=== PATIENT | female | born 1980 | race Caucasian/White ===

== ENCOUNTER 2023-08-18 17:10 | Emergency (ER) | payer BC ==
[2023-08-18 17:26] VITALS: BP 145/84; PULSE 65; RESP 18; TEMP 98.2
--- NOTE | 2023-08-18 17:26 | ED ---
General Adult HPI - General Chief complaint: Extremity Injury, Lower Stated complaint: Pain in L foot Time Seen by Provider: 08/18/23 17:25 Source: patient, RN notes reviewed Mode of arrival: ambulatory Limitations: no limitations - History of Present Illness Initial comments: Patient is a 43-year-old female presented to ER with chief complaint of left foot pain. Patient states yesterday she noted her left foot was painful. She states today pain has increased into her ankle and up into her calf. Does have a history of DVTs. Not currently on blood thinner. She reports she recently traveled home from [place] about 8-hour car ride. Denies any chest pain, shortness of breath, fevers, chills. Denies any traumas or injury. - Related Data Allergies Allergy/AdvReac Type Severity Reaction Status Date / Time No Known Allergies Allergy Verified 08/18/23 17:21 Review of Systems ROS Statement: Those systems with pertinent positive or pertinent negative responses have been documented in the HPI. ROS Other: All systems not noted in ROS Statement are negative. Past Medical History Past Medical History: No Reported History History of Any Multi-Drug Resistant Organisms: None Reported Past Surgical History: Section, Cholecystectomy, Tonsillectomy Additional Past Surgical History / Comment(s): splenectomy Past Psychological History: Anxiety Smoking Status: Never smoker Past Alcohol Use History: Occasional Past Drug Use History: None Reported General Exam - General Exam Comments Initial Comments: Visual Physical Exam Vital signs reviewed General: Well-appearing, nontoxic, no acute distress. Head: Normocephalic, atraumatic Eyes: PERRLA, EOMI ENT: Airway patent Chest: Nonlabored breathing Skin: No visual rash, normal skin tone Neuro: Alert and oriented 3 Musculoskeletal: No gross abnormalities Limitations: no limitations General appearance: alert, in no apparent distress Respiratory exam: Present: normal lung sounds bilaterally. Absent: respiratory distress, wheezes, rales, rhonchi, stridor Cardiovascular Exam: Present: regular rate, normal rhythm, normal heart sounds. Absent: systolic murmur, diastolic murmur, rubs, gallop, clicks Extremities exam: Present: normal inspection, full ROM, normal capillary refill, other (Positive Homans' sign on left. 2+ dorsalis pedis pulse. Sensation intact. ). Absent: tenderness, pedal edema, joint swelling, calf tenderness Neurological exam: Present: alert, oriented X3, CN II-XII intact Psychiatric exam: Present: normal affect, normal mood Skin exam: Present: warm, dry, intact, normal color. Absent: rash Course Vital Signs 08/18/23 17:16 Temperature 98.2 F Pulse Rate 65 Respiratory 18 Rate Blood Pressure 145/84 O2 Sat by Pulse 98 Oximetry Medical Decision Making - Medical Decision Making I performed the quick note portion of this chart. Electronically signed by Mitch Mcdonald PA-C Was pt. sent in by a medical professional or institution (, [facility], DEPARTMENT MANAGER, urgent care, hospital, or intermediate...) When possible be specific @ -No Did you speak to anyone other than the patient for history (EMS, parent, family, police, friend...)? What history was obtained from this source @ -No Did you review nursing and triage notes (agree or disagree)? Why? @ -I reviewed and agree with nursing and triage notes Were old charts reviewed (outside hosp., previous admission, EMS record, old EKG, old radiological studies, urgent care reports/EKG's, intermediate records)? Report findings @ -No old charts were reviewed Differential Diagnosis (chest pain, altered mental status, abdominal pain women, abdominal pain men, vaginal bleeding, weakness, fever, dyspnea, syncope, headache, dizziness, GI bleed, back pain, seizure, CVA, palpatations, mental health, musculoskeletal)? @ -Differential Musculoskeletal Muscular strain, contusion, ligament sprain, fracture, arthritis, septic arthritis, bursitis, cellulitis, muscle spasm, nerve compression, DVT, arterial occlusion, herpes zoster, electrolyte abnormality, tumor.... This is not meant to be in all inclusive list EKG interpreted by me (3pts min.). @ -None X-rays interpreted by me (1pt min.). @ -None done CT interpreted by me (1pt min.). @ -None done U/S interpreted by me (1pt. min.). @ -Ultrasound venous Doppler of left lower extremity negative for acute DVTs. What testing was considered but not performed or refused? (CT, X-rays, U/S, labs)? Why? @ -None What meds were considered but not given or refused? Why? @ -None Did you discuss the management of the patient with other professionals (professionals i.e. , PA, DEPARTMENT MANAGER, lab, RT, psych nurse, healthcare social worker, spike maker, teacher, peace officer, case picker)? Give summary @ -No Was smoking cessation discussed for >3mins.? @ -No Was critical care preformed (if so, how long)? @ -No Were there social determinants of health that impacted care today? How? (Homelessness, low income, unemployed, alcoholism, drug addiction, transportation, low edu. Level, literacy, decrease access to med. care, prison, rehab)? @ -No Was there de-escalation of care discussed even if they declined (Discuss DNR or withdrawal of care, Hospice)? DNR status @ -No What co-morbidities impacted this encounter? (DM, HTN, Smoking, COPD, CAD, Cancer, CVA, ARF, Chemo, Hep., AIDS, mental health diagnosis, sleep apnea, morbid obesity)? @ -History of DVT not currently on thinner Was patient admitted / discharged? Hospital course, mention meds given and rou te, prescriptions, significant lab abnormalities, going to OR and other pertinent info. @ -Discharged. Patient is a 43 year old female presenting to the ER with a chief compliant of left ankle pain. History and physical exam completed. Vitals stable. Patient in no signs of acute distress. Positive Homans sign on left. Bilateral lower extremities neurovascularly intact. Due to concern of DVT as patient recently traveled 8 hours in a car and history of DVTs not on thinners ultrasound was completed. Ultrasound venous Doppler of left lower extremity negative for acute DVTs. Results discussed with patient, all questions answered. Advised her to follow-up with PCP in the next 1 to 2 days. Return parameters discussed. Patient discharged stable condition follow-up PCP. Patient expressed understanding and agreement with care plan. Undiagnosed new problem with uncertain prognosis? @ -No Drug Therapy requiring intensive monitoring for toxicity (Heparin, Nitro, Insulin, Cardizem)? @ -No Were any procedures done? @ -No Diagnosis/symptom? @ -Ankle pain Acute, or Chronic, or Acute on Chronic? @ -Acute Uncomplicated (without systemic symptoms) or Complicated (systemic symptoms)? @ -Uncomplicated Side effects of treatment? @ -No Exacerbation, Progression, or Severe Exacerbation? @ -No Poses a threat to life or bodily function? How? (Chest pain, USA, [place], pneumonia, PE, COPD, DKA, ARF, appy, cholecystitis, CVA, Diverticulitis, Homicidal, Suicidal, threat to staff... and all critical care pts) @ -No - Radiology Data Radiology results: report reviewed, image reviewed Disposition Clinical Impression: Left ankle pain Disposition: HOME SELF-CARE Condition: Stable Additional Instructions: Please follow-up with PCP in the next 1 to 2 days. Return to the ER for any new or worsening symptoms. You may alternate using [id number] Tylenol and Motrin for pain control. Is patient prescribed a controlled substance at d/c from ED?: No Referrals: Noe Wood DO [Primary Care Provider] - 1-2 days Time of Disposition: 18:56
--- NOTE | 2023-08-18 18:20 | US ---
EXAMINATION TYPE: US venous doppler duplex LE LT DATE OF EXAM: 08/18/2023 6:07 PM COMPARISON: NONE CLINICAL INDICATION: Female, 43 years old with history of pain/hx dvt/no thinners; Pain in left ankle /foot that shoots up leg x 1 day. Hx of DVT in 2007. Not on blood thinners currently SIDE PERFORMED: Left TECHNIQUE: The lower extremity deep venous system is examined utilizing real time linear array sonog garrett with graded compression, doppler sonography and color-flow sonography. VESSELS IMAGED: Common Femoral Vein Deep Femoral Vein Greater Saphenous Vein * Femoral Vein Popliteal Vein Small Saphenous Vein * Proximal Calf Veins (* superficial vessels) Left Leg: No evidence for DVT IMPRESSION: No evidence for DVT within the left lower extremity imaged from the groin to the upper calf.
== END 2023-08-18 22:35 | disposition home or self-care (01) ==
LOC: EC 17:10
DX: M25.572 Pain in left ankle and joints of left foot (principal); Z86.59 Personal history of other mental and behavioral disorders
CPT/HCPCS: 99283

== ENCOUNTER → 2023-09-16 | Outpatient (CLI) | payer BC ==
--- NOTE | 2023-09-19 15:01 | MM ---
Reason for Exam: Screening (asymptomatic). Patient History: Menarche at age 11. First Full-Term at age 33. Late child-bearing (after 31). Perimenopausal. Hormonal Contraceptives for 11 years from age 18 until age 29. Risk Values: Sulma 5 year model risk: 1.0%. NCI Lifetime model risk: 14.6%. Tissue Density: The breasts are heterogeneously dense, which may obscure small masses. Findings: Analyzed By CAD. The pattern is symmetrical. No suspicious groups of microcalcifications, spiculated or lobular masses, architectural distortion or other secondary signs of malignancy are mammographically apparent. Overall Assessment: Negative, BI-RAD 1 Management: Screening Mammogram of both breasts in 1 year. A negative mammogram report should not preclude additional follow up of suspicious palpable abnormalities. Patient should continue monthly self breast exam. A clinical breast exam by your physician is recommended on an annual basis and results should be correlated with mammographic findings. Electronically signed and approved by: Boris Churchill D.O. Radiologis
== END | disposition home or self-care (01) ==
LOC: RADMAMWWP 11:05
PROVIDERS: ATTEND Family Medicine
DX: Z12.31 Encounter for screening mammogram for malignant neoplasm of breast (principal)
CPT/HCPCS: 77063; 77067

== ENCOUNTER 2023-09-24 20:28 | Emergency (ER) | payer BC ==
--- NOTE | 2023-09-24 20:43 | ED ---
Upper Extremity HPI - General Chief Complaint: Extremity Injury, Upper Stated Complaint: Left Middle Finger Injury Time Seen by Provider: 09/24/23 20:35 Source: patient Mode of arrival: ambulatory Limitations: no limitations - History of Present Illness Initial Comments: 43-year-old female presenting with chief complaint of finger pain. Patient states that her daughter went to go do a handstand when her foot kicked the patient's left middle finger. She is having a pins and needle sensation in this finger. She does have full range of motion but this does induce pain. There is a bit of swelling as well. No obvious deformity. - Related Data Allergies Allergy/AdvReac Type Severity Reaction Status Date / Time No Known Allergies Allergy Verified 09/24/23 20:35 Review of Systems ROS Statement: Those systems with pertinent positive or pertinent negative responses have been documented in the HPI. ROS Other: All systems not noted in ROS Statement are negative. Past Medical History Past Medical History: Deep Vein Thrombosis (DVT) History of Any Multi-Drug Resistant Organisms: None Reported Past Surgical History: Section, Cholecystectomy, Tonsillectomy Additional Past Surgical History / Comment(s): splenectomy Past Psychological History: Anxiety Smoking Status: Never smoker Past Alcohol Use History: Occasional Past Drug Use History: None Reported General Exam Limitations: no limitations General appearance: alert, in no apparent distress Head exam: Present: atraumatic, normocephalic Eye exam: Present: normal appearance, EOMI Neck exam: Present: normal inspection Respiratory exam: Absent: respiratory distress Cardiovascular Exam: Present: regular rate Left Hand Wrist exam: Present: full ROM, tenderness (Tenderness and swelling of the left middle finger) Neurological exam: Present: alert, oriented X3 Psychiatric exam: Present: normal affect, normal mood Skin exam: Present: warm, dry Course Vital Signs 09/24/23 09/24/23 20:33 22:28 Temperature 97.8 F Pulse Rate 71 65 Respiratory 18 18 Rate Blood Pressure 143/86 126/82 O2 Sat by Pulse 98 96 Oximetry Medical Decision Making - Medical Decision Making Was pt. sent in by a medical professional or institution (, PA, ELEMENTARY SUMMER SCHOOL TEACHER, urgent care, hospital, or [facility]...) When possible be specific @ -[No] Did you speak to anyone other than the patient for history (EMS, parent, family, police, friend...)? What history was obtained from this source @ -[No] Did you review nursing and triage notes (agree or disagree)? Why? @ -[I reviewed and agree with nursing and triage notes] Were old charts reviewed (outside hosp., previous admission, EMS record, old EKG, old radiological studies, urgent care reports/EKG's, [facility] records)? Report findings @ -[No old charts were reviewed] Differential Diagnosis (chest pain, altered mental status, abdominal pain women, abdominal pain men, vaginal bleeding, weakness, fever, dyspnea, syncope, headache, dizziness, GI bleed, back pain, seizure, CVA, palpatations, mental health, musculoskeletal)? @ -Differential Musculoskeletal Muscular strain, contusion, ligament sprain, fracture, arthritis, septic arthritis, bursitis, cellulitis, muscle spasm, nerve compression, DVT, arterial occlusion, herpes zoster, electrolyte abnormality, tumor.... This is not meant to be in all inclusive list EKG interpreted by me (3pts min.). @ -[As above] X-rays interpreted by me (1pt min.). @ -X-ray shows no evidence of fracture or dislocation CT interpreted by me (1pt min.). @ -[None done] U/S interpreted by me (1pt. min.). @ -[None done] What testing was considered but not performed or refused? (CT, X-rays, U/S, labs)? Why? @ -[None] What meds were considered but not given or refused? Why? @ -[None] Did you discuss the management of the patient with other professionals (professionals i.e. , PA, ELEMENTARY SUMMER SCHO[employer] TEACHER, lab, RT, psych nurse, medical social consultant, energy scheduler, teacher, science and operations officer, case advocate)? Give summary @ -[No] Was smoking cessation discussed for >3mins.? @ -[No] Was critical care preformed (if so, how long)? @ -[No] Were there social determinants of health that impacted care today? How? (Homelessness, low income, unemployed, alcoholism, drug addiction, transp ortation, low edu. Level, literacy, decrease access to med. care, prison, rehab)? @ -[No] Was there de-escalation of care discussed even if they declined (Discuss DNR or withdrawal of care, Hospice)? DNR status @ -[No] What co-morbidities impacted this encounter? (DM, HTN, Smoking, COPD, CAD, Cancer, CVA, ARF, Chemo, Hep., AIDS, mental health diagnosis, sleep apnea, morbid obesity)? @ -[None] Was patient admitted / discharged? Hospital course, mention meds given and route, prescriptions, significant lab abnormalities, going to OR and other pertinent info. @ -43-year-old female presenting with chief complaint of left middle finger pain after her daughter accidentally kicked her hand. She is neurovascularly intact. X-ray shows no fracture or dislocation. Patient is provided with a finger splint and educated on supportive management of finger sprain. Discharged home. Follow-up with PCP. Report back to ER with any new or worsening symptoms. Discussed return parameters and answered all questions. Patient conveyed verbal understanding and agreed to the plan. I discussed this case in detail with my attending Dr. Cash Undiagnosed new problem with uncertain prognosis? @ -[No] Drug Therapy requiring intensive monitoring for toxicity (Heparin, Nitro, Insulin, Cardizem)? @ -[No] Were any procedures done? @ -[No] Diagnosis/symptom? @ -Finger sprain Acute, or Chronic, or Acute on Chronic? @ -Acute Uncomplicated (without systemic symptoms) or Complicated (systemic symptoms)? @ -Uncomplicated Side effects of treatment? @ -[No] Exacerbation, Progression, or Severe Exacerbation? @ -[No] Poses a threat to life or bodily function? How? (Chest pain, USA, [place], pneumonia, PE, COPD, DKA, ARF, appy, cholecystitis, CVA, Diverticulitis, Homicidal, Suicidal, threat to staff... and all critical care pts) @ -[No] Disposition Clinical Impression: Finger sprain Disposition: HOME SELF-CARE Condition: Good Instructions (If sedation given, give patient instructions): Finger Sprain (ED) Additional Instructions: Follow-up with PCP. Report back to ER with any new or worsening symptoms. Take Motrin and Tylenol as needed for pain. Rest ice and elevate the finger. Is patient prescribed a controlled substance at d/c from ED?: No Referrals: Noe Wood DO [Primary Care Provider] - 1-2 days Time of Disposition: 22:27
[2023-09-24] MEDS: IBUPROFEN 800 MG TAB PO STA (21:07)
[2023-09-24 21:40] VITALS: RESP 18; TEMP 97.8
--- NOTE | 2023-09-24 22:18 | XR ---
EXAMINATION TYPE: XR finger LT DATE OF EXAM: 09/24/2023 9:16 PM CLINICAL INDICATION:Female, 43 years old with history of middle finger injury; [facility] COMPARISON: None TECHNIQUE: 3 views of the middle finger left hand FINDINGS: No visualized acute fracture or dislocation. Mild degenerative changes. Unremarkable soft tissues. No radiopaque foreign body is seen. IMPRESSION: No evidence of fracture or dislocation.
[2023-09-24 23:01] VITALS: BP 126/82; PULSE 65
== END 2023-09-24 22:34 | disposition home or self-care (01) ==
LOC: EC 20:28
DX: S63.613A Unspecified sprain of left middle finger, initial encounter (principal); Z90.49 Acquired absence of other specified parts of digestive tract; W50.1XXA Accidental kick by another person, initial encounter
CPT/HCPCS: 99283

== ENCOUNTER 2023-10-29 14:00 | Emergency (ER) | payer BC ==
--- NOTE | 2023-10-29 14:59 | ED ---
Abdominal Pain HPI - General Source: patient, RN/MD, RN notes reviewed Mode of arrival: EMS Limitations: no limitations <Toribio Suazo - Last Filed: 10/29/23 14:57> - General Source: patient, family, RN notes reviewed Limitations: no limitations <Claudette Mcdonald - Last Filed: 10/29/23 19:42> <Alexander Ortiz - Last Filed: 10/29/23 20:38> - General Chief Complaint: Abdominal Pain Stated Complaint: Abd pain Time Seen by Provider: 10/29/23 14:19 - History of Present Illness Initial Comments: Quick [id number] female presents emerged part from urgent care to complaint of right-sided abdominal pain. Patient states she has had increasing pain she does have a history of ovarian cyst states that she does not feel that this is similar. She did have a urinalysis at urgent care and was told it was normal. 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 Patient denies any reports of fever no chest pain she has had a prior cholecystectomy. (Toribio Suazo) 43-year-old female presented to the ER with a chief complaint of abdominal pain. Patient has a past medical history significant of ovarian cyst and splenectomy. Patient reports this has been going on for the past few days and has exacerbated last night. She states her pain is primarily in the right lower quadrant but does have mild radiation to the left. She describes it as a "pressure" sensation and that she is "bloated". She denies any fevers, chills, constipation, diarrhea, urinary complaints. She was seen at urgent care prior to arrival in the ER and had urinalysis completed. Patient states that she was prescribed Keflex but has not started taking prescription at this time. She came to the ER. Patient denies any cough, congestion, chest pain, shortness of breath or peripheral edema. (Claudette Mcdonald) - Related Data Previous Rx's Medication Instructions Recorded Ondansetron Odt [Zofran Odt] 4 mg PO Q8HR PRN #10 tab 10/29/23 Allergies Allergy/AdvReac Type Severity Reaction Status Date / Time No Known Allergies Allergy Verified 09/24/23 20:35 Review of Systems ROS Other: All systems not noted in ROS Statement are negative. <Toribio Suazo - Last Filed: 10/29/23 14:57> ROS Other: All systems not noted in ROS Statement are negative. <Claudette Mcdonald - Last Filed: 10/29/23 19:42> ROS Other: All systems not noted in ROS Statement are negative. <DianaAlexander - Last Filed: 10/29/23 20:38> ROS Statement: Those systems with pertinent positive or pertinent negative responses have been documented in the HPI. 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 History of Any Multi-Drug Resistant Organisms: None Reported Past Surgical History: Section, Cholecystectomy, Tonsillectomy Additional Past Surgical History / Comment(s): splenectomy Past Psychological History: Anxiety Smoking Status: Never smoker Past Alcohol Use History: Occasional Past Drug Use History: None Reported <Toribio Suazo - Last Filed: 10/29/23 14:57> General Exam Limitations: no limitations <Toribio Suazo - Last Filed: 10/29/23 14:57> General appearance: alert, in no apparent distress Respiratory exam: Present: normal lung sounds bilaterally. Absent: respiratory distress, wheezes, rales, rhonchi, stridor Cardiovascular Exam: Present: regular rate, normal rhythm, normal heart sounds. Absent: systolic murmur, diastolic murmur, rubs, gallop, clicks GI/Abdominal exam: Present: soft, tenderness (Lower abdominal tenderness. More prominent in right lower quadrant. Rovsing sign positive), normal bowel sounds Neurological exam: Present: alert, oriented X3, CN II-XII intact Psychiatric exam: Present: normal affect, normal mood <Claudette Mcdonald - Last Filed: 10/29/23 19:42> - General Exam Comments Initial Comments: Visual Physical Exam Vital signs reviewed General: Well-appearing, nontoxic, no acute distress. Head: Normocephalic, atraumatic Eyes: PERRLA, EOMI ENT: Airway patent Chest: Nonlabored breathing Skin: No visual rash, normal skin tone Neuro: Alert and oriented 3 Musculoskeletal: No gross abnormalities (Toribio Suazo) Course Vital Signs 10/29/23 10/29/23 14:31 18:04 Temperature 98.3 F Pulse Rate 65 71 Respiratory 18 18 Rate Blood Pressure 125/81 131/73 O2 Sat by Pulse 100 95 Oximetry Medical Decision Making <Toribio Suazo - Last Filed: 10/29/23 14:57> - Lab Data Result diagrams: 10/29/23 15:54 10/29/23 15:54 <KathyfrancoClaudette - Last Filed: 10/29/23 19:42> - Lab Data Result diagrams: 10/29/23 15:54 10/29/23 15:54 <LedyluciomadelieneAlexander - Last Filed: 10/29/23 20:38> - Medical Decision Making I completed the quick note portion of this chart signed Toribio Suazo PA-C (Toribio Suazo) Was pt. sent in by a medical professional or institution ([facility] Christ[facility], [employer], urgent care, hospital, or custodial...) When possible be specific @ -Patient sent by urgent care for evaluation of right lower quadrant abdominal pain. Did you speak to anyone other than the patient for history (EMS, parent, family, police, friend...)? What history was obtained from this source @ - aiding in HPI and past medical history Did you review nursing and triage notes (agree or disagree)? Why? @ -I reviewed and agree with nursing and triage notes Were old charts reviewed (outside hosp., previous admission, EMS record, old EKG, old radiological studies, urgent care reports/EKG's, custodial records)? Report findings @ -No old charts were reviewed Differential Diagnosis (chest pain, altered mental status, abdominal pain women, abdominal pain men, vaginal bleeding, weakness, fever, dyspnea, syncope, headache, dizziness, GI bleed, back pain, seizure, CVA, palpatations, mental health, musculoskeletal)? @ -Differential Abdominal Pain Women:Appendicitis, Cholecystitis, diverticulosis, ischemic bowel, pancreatitis, hepatitis, UTI, gastroenteritis, AAA, incarcerated hernia, bowel obstruction, constipation, inflammatory bowel, hepatitis, peptic ulcer disease, splenic infarction, perforated viscus, vulvitis, ovarian torsion, PID, kidney stone, placenta abruption, this is not meant to be an all-inclusive list EKG interpreted by me (3pts min.). @ -None X-rays interpreted by me (1pt min.). @ -None done CT interpreted by me (1pt min.). @ -None done U/S interpreted by me (1pt. min.). @ -None done What testing was considered but not performed or refused? (CT, X-rays, U/S, labs)? Why? @ -None What meds were considered but not given or refused? Why? @ -None Did you discuss the management of the patient with other professionals (professionals i.e. , PA, PL[employer]ER, lab, RT, psych nurse, social media developer, corporate lawyer, teacher, real estate loan officer, pillowcase maker)? Give summary @ -No Was smoking cessation discussed for >3mins.? @ -No Was critical care preformed (if so, how long)? @ -No Were there social determinants of health that impacted care today? How? (Homelessness, low income, unemployed, alcoholism, drug addiction, tra nsportation, low edu. Level, literacy, decrease access to med. care, long term, rehab)? @ -No Was there de-escalation of care discussed even if they declined (Discuss DNR or withdrawal of care, Hospice)? DNR status @ -No What co-morbidities impacted this encounter? (DM, HTN, Smoking, COPD, CAD, Cancer, CVA, ARF, Chemo, Hep., AIDS, mental health diagnosis, sleep apnea, morbid obesity)? @ -Asplenic Was patient admitted / discharged? Hospital course, mention meds given and route, prescriptions, significant lab abnormalities, going to OR and other pertinent info. @ -[43-year-old female presented to the ER with a chief complaint of left lower quadrant abdominal pain. History and physical exam completed. Vitals stable. Patient no signs of acute distress and nontoxic-appearing. Normal bowel sounds with right lower quadrant abdominal tenderness to palpation. Laboratory studies obtained significant for WBC 17. Urine without signs of infection. Patient received IV Toradol for pain control. CT abdomen pelvis ordered, results pending. Patient signed out to Ray Ortiz PA-C at shift completion pending CT results and disposition. (Claudette Mcdonald) Was patient admitted / discharged? Hospital course, mention meds given and route, prescriptions, significant lab abnormalities, going to OR and other pertinent info. @ -Discharge 43-year-old female presenting to the ED with complaints of right lower abdominal pain going across her entire lower abdomen for the past 2 days with some associated nausea. Patient also noted some associated pain of her lower abdomen with urination however denies burning with urination, hematuria, or other urinary symptoms. Case signed out to me pending CT results. CT showed no acute abdominal process however did show nonspecific 4.1 cm left adrenal mass. This was discussed with patient and advised close follow-up with her PCP which she has follow-up with on Wednesday. Patient was also given a prescription for Keflex at the urgent care she was at prior. Advise continuing this as prescribed. She requested a dose of Keflex here prior to leaving and was provided 1. Discharged home in stable condition. Discussed return precautions with patient who verbalized agreement. Undiagnosed new problem with uncertain prognosis? @ -No Drug Therapy requiring intensive monitoring for toxicity (Heparin, Nitro, Insulin, Cardizem)? @ -No Were any procedures done? @ -No Diagnosis/symptom? @ -Abdominal pain Acute, or Chronic, or Acute on Chronic? @ -Acute Uncomplicated (without systemic symptoms) or Complicated (systemic symptoms)? @ -Uncomplicated Side effects of treatment? @ -No Exacerbation, Progression, or Severe Exacerbation? @ -No Poses a threat to life or bodily function? How? (Chest pain, USA, ID, pneumonia, PE, COPD, DKA, ARF, appy, cholecystitis, CVA, Diverticulitis, Homicidal, Suicidal, threat to staff... and all critical care pts) @ -Unlikely (Alexander Ortiz) - Lab Data Lab Results 10/29/23 10/29/23 10/29/23 Range/Units 15:54 15:54 15:54 WBC 17.0 H (3.8-10.6) k/uL RBC 5.11 (3.80-5.40) m/uL Hgb 14.0 (11.4-16.0) gm/dL Hct 44.7 (34.0-46.0) % MCV 87.4 (80.0-100.0) fL MCH 27.4 (25.0-35.0) pg MCHC 31.4 (31.0-37.0) g/dL RDW 14.5 (11.5-15.5) % Plt Count 508 H (150-450) k/uL MPV 8.1 Neutrophils % Not Reportable Neutrophils % (Manual) 47 % Lymphocytes % Not Reportable Lymphocytes % (Manual) 44 % Monocytes % Not Reportable Monocytes % (Manual) 7 % Eosinophils % Not Reportable Eosinophils % (Manual) 2 % Basophils % Not Reportable Neutrophils # Not Reportable Neutrophils # (Manual) 7.99 H (1.3-7.7) k/uL Lymphocytes # Not Reportable Lymphocytes # (Manual) 7.48 H (1.0-4.8) k/uL Monocytes # Not Reportable Monocytes # (Manual) 1.19 H (0-1.0) k/uL Eosinophils # Not Reportable Eosinophils # (Manual) 0.34 (0-0.7) k/uL Basophils # Not Reportable Nucleated RBCs 0 (0-0) /100 WBC Manual Slide Review Performed Large Platelets Present Polychromasia Present Sodium 141 (137-145) mmol/L Potassium 4.2 (3.5-5.1) mmol/L Chloride 109 H (98-107) mmol/L Carbon Dioxide 27 (22-30) mmol/L Anion Gap 5 mmol/L BUN 11 (7-17) mg/dL Creatinine 0.63 (0.52-1.04) mg/dL Est GFR (CKD-EPI)AfAm >90 (>60 ml/min/1.73 sqM) Est GFR (CKD-EPI)NonAf >90 (>60 ml/min/1.73 sqM) Glucose 91 (74-99) mg/dL Plasma Lactic Acid Augustus (0.7-2.0) mmol/L Calcium 9.2 (8.4-10.2) mg/dL Total Bilirubin 0.2 (0.2-1.3) mg/dL AST 17 (14-36) U/L ALT 16 (4-34) U/L Alkaline Phosphatase 92 (38-126) U/L Total Protein 6.8 (6.3-8.2) g/dL Albumin 3.8 (3.5-5.0) g/dL Lipase 65 (23-300) U/L Urine Color Colorless Urine Appearance Cloudy H (Clear) Urine pH 6.0 (5.0-8.0) Ur Specific [place] 1.004 (1.001-1.035) Urine Protein Negative (Negative) Urine Glucose (UA) Negative (Negative) Urine Ketones Negative (Negative) Urine Blood Negative (Negative) Urine Nitrite Negative (Negative) Urine Bilirubin Negative (Negative) Urine Urobilinogen <2.0 (<2.0) mg/dL Ur Leukocyte Esterase Negative (Negative) Ur Squamous Epith Cells <1 (0-4) /hpf Urine Bacteria Rare H (None) /hpf Urine Mucus Rare H (None) /hpf 10/29/23 Range/Units 15:54 WBC (3.8-10.6) k/uL RBC (3.80-5.40) m/uL Hgb (11.4-16.0) gm/dL Hct (34.0-46.0) % MCV (80.0-100.0) fL MCH (25.0-35.0) pg MCHC (31.0-37.0) g/dL RDW (11.5-15.5) % Plt Count (150-450) k/uL MPV Neutrophils % Neutrophils % (Manual) % Lymphocytes % Lymphocytes % (Manual) % Monocytes % Monocytes % (Manual) % Eosinophils % Eosinophils % (Manual) % Basophils % Neutrophils # Neutrophils # (Manual) (1.3-7.7) k/uL Lymphocytes # Lymphocytes # (Manual) (1.0-4.8) k/uL Monocytes # Monocytes # (Manual) (0-1.0) k/uL Eosinophils # Eosinophils # (Manual) (0-0.7) k/uL Basophils # Nucleated RBCs (0-0) /100 WBC Manual Slide Review Large Platelets Polychromasia Sodium (137-145) mmol/L Potassium (3.5-5.1) mmol/L Chloride (98-107) mmol/L Carbon Dioxide (22-30) mmol/L Anion Gap mmol/L BUN (7-17) mg/dL Creatinine (0.52-1.04) mg/dL Est GFR (CKD-EPI)AfAm (>60 ml/min/1.73 sqM) Est GFR (CKD-EPI)NonAf (>60 ml/min/1.73 sqM) Glucose (74-99) mg/dL Plasma Lactic Acid Augustus 1.6 (0.7-2.0) mmol/L Calcium (8.4-10.2) mg/dL Total Bilirubin (0.2-1.3) mg/dL AST (14-36) U/L ALT (4-34) U/L Alkaline Phosphatase (38-126) U/L Total Protein (6.3-8.2) g/dL Albumin (3.5-5.0) g/dL Lipase (23-300) U/L Urine Color Urine Appearance (Clear) Urine pH (5.0-8.0) Ur Specific [place] (1.001-1.035) Urine Protein (Negative) Urine Glucose (UA) (Negative) Urine Ketones (Negative) Urine Blood (Negative) Urine Nitrite (Negative) Urine Bilirubin (Negative) Urine Urobilinogen (<2.0) mg/dL Ur Leukocyte Esterase (Negative) Ur Squamous Epith Cells (0-4) /hpf Urine Bacteria (None) /hpf Urine Mucus (None) /hpf Disposition <Toribio Suazo - Last Filed: 10/29/23 14:57> <Claudette Mcdonald - Last Filed: 10/29/23 19:42> Is patient prescribed a controlled substance at d/c from ED?: No Time of Disposition: 20:38 <Alexander Ortiz - Last Filed: 10/29/23 20:38> Clinical Impression: Abdominal pain Disposition: HOME SELF-CARE Condition: Good Additional Instructions: Please return to the Emergency Department if symptoms worsen or any other concerns. Take [id number] medications as needed for your symptoms. Follow-up with your primary care provider as scheduled. Prescriptions: Ondansetron Odt [Zofran Odt] 4 mg PO Q8HR PRN #10 tab PRN Reason: Nausea Referrals: Noe Wood DO [Primary Care Provider] - 1-2 days
[2023-10-29 15:09] VITALS: RESP 18; TEMP 98.3
[2023-10-29 16:55] LABS: HCT 44.7 % (34.0-46.0); MCH 27.4 pg (25.0-35.0); MCHC 31.4 g/dL (31.0-37.0); MCV 87.4 fL (80.0-100.0); Mean Platelet Volume 8.1; Platelet Count 508 k/uL (150-450); RBC 5.11 m/uL (3.80-5.40); RDW 14.5 % (11.5-15.5)
[2023-10-29 17:01] LABS: Appearance,Urine Cloudy (Clear); Bacteria,Urine Rare /hpf; Bilirubin,Urine Negative (Negative); Blood,Urine Negative (Negative); Color,Urine Colorless; Glucose,Urine (UA) Negative (Negative); Ketones,Urine Negative (Negative); Leukocyte Esterase,Urine Negative (Negative); Mucus,Urine Rare /hpf; Nitrite,Urine Negative (Negative); Protein,Urine Negative (Negative); Specific Gravity,Urine 1.004 (1.001-1.035); Squamous Epithelial Cell,Urine <1 /hpf (0-4); Urobilinogen,Urine <2.0 mg/dL (<2.0)
[2023-10-29 17:04] LABS: ALT 16 U/L (4-34); AST 17 U/L (14-36); African American GFR (CKD) >90 (>60 ml/min/1.73 sqM); Albumin 3.8 g/dL (3.5-5.0); Alkaline Phosphatase 92 U/L (38-126); Anion Gap 5 mmol/L; Blood Urea Nitrogen 11 mg/dL (7-17); Calcium 9.2 mg/dL (8.4-10.2); Carbon Dioxide 27 mmol/L (22-30); Chloride 109 mmol/L (98-107); Glucose 91 mg/dL (74-99); Lipase 65 U/L (23-300); Non-African American GFR(CKD) >90 (>60 ml/min/1.73 sqM); Potassium 4.2 mmol/L (3.5-5.1); Sodium 141 mmol/L (137-145); Total Bilirubin 0.2 mg/dL (0.2-1.3); Total Protein 6.8 g/dL (6.3-8.2)
[2023-10-29 17:27] LABS: Eosinophils # (M) 0.34 k/uL (0-0.7); Lymphocytes # (M) 7.48 k/uL (1.0-4.8); Monocytes # (M) 1.19 k/uL (0-1.0); Neutrophils # (M) 7.99 k/uL (1.3-7.7); Neutrophils % (M) 47 %; Nucleated Red Blood Cells 0 /100 WBC (0-0); Total Cells Counted 100
[2023-10-29 17:28] LABS: Large Platelets Present; Polychromasia Present
[2023-10-29] MEDS: ONDANSETRON 4 MG/2 ML VIAL IVP STA (18:12)
[2023-10-29] MEDS: SODIUM CHLORIDE 0.9% 1,000 ML IV STA (18:12)
[2023-10-29] MEDS: KETOROLAC 15 MG/ML 1 ML VIAL IVP STA (18:14)
[2023-10-29 18:31] VITALS: BP 131/73; PULSE 71
--- NOTE | 2023-10-29 20:03 | CT ---
EXAMINATION TYPE: CT abdomen pelvis w con CT DLP: 1499.9 mGycm, Automated exposure control for dose reduction was used. DATE OF EXAM: 10/29/2023 7:11 PM COMPARISON: None. CLINICAL INDICATION:Female, 43 years old with history of RLQ abd pain; RLQ pain. TECHNIQUE: Axial CT of the abdomen and pelvis. Sagittal and coronal reformats were created on a [employer] workstation. Contrast used:100 mL of Isovue 300 with IV Contrast, (none if empty) Oral contrast used: with Oral Contrast (none if empty) FINDINGS: LOWER CHEST: Dependent atelectasis in the lung bases. Heart size upper normal. ABDOMEN LIVER: Unremarkable GALLBLADDER AND BILE DUCTS: The gallbladder is surgically absent. Biliary tree does not appear pathol ogically dilated. PANCREAS: Unremarkable. SPLEEN: Spleen appears absent, correlate clinically. ADRENAL GLANDS: Right unremarkable. Left shows a 4.1 x 3.4 cm mass with average attenuation 33 Hounsf [place] units, indeterminate on this postcontrast exam.. KIDNEYS AND URETERS: Developmental transverse lie of the right kidney. Kidneys enhance symmetrically. No evidence of hydronephrosis or visible renal calculus. The ureters are unremarkable. PELVIS BLADDER: Unremarkable REPRODUCTIVE: Unremarkable by CT. ABDOMEN & PELVIS STOMACH AND BOWEL: Stomach and small bowel are nondistended, no evidence of obstruction. The append ix is not seen with certainty but there is no inflammatory process seen in the pericecal region. Mod erate stool throughout the colon, through the rectum. No focal abnormality seen. PERITONEUM/RETROPERITONEUM: No evidence of pneumoperitoneum or free fluid. VASCULATURE: Aorta and major branches are grossly unremarkable. No AAA. Portal veins are enhancing. Splenic vein is patent. LYMPH NODES: No enlarged nodes by CT size criteria. SOFT TISSUE/ABDOMINAL WALL: Unremarkable MUSCULOSKELETAL: No acute osseous abnormalities. Minimal degenerative changes. IMPRESSION: 1. Appendix is not seen, however there is no inflammatory process seen in the pericecal region. 2. No evidence of bowel obstruction, free fluid or free air. 3. Moderate stool throughout the colon, correlate for constipation. 4. Nonspecific 4.1 cm left adrenal mass. 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 Recommend outpatient MRI or CT for further characterization.
[2023-10-29] MEDS: CEPHALEXIN 500 MG CAP PO STA (20:55)
== END 2023-10-29 21:10 | disposition home or self-care (01) ==
LOC: EC 14:00
DX: R10.9 Unspecified abdominal pain (principal)
CPT/HCPCS: 36415; 80053; 83605; 83690; 85025; 81001; 74177; 99284; 96374; 96375; 96361; J2405; J1885; Q9967

== ENCOUNTER 2023-10-30 17:49 | Emergency (ER) | payer BC ==
--- NOTE | 2023-10-30 18:21 | ED ---
Abdominal Pain HPI - General Chief Complaint: Abdominal Pain Stated Complaint: Constipation, rectal bleeding Time Seen by Provider: 10/30/23 18:05 Source: patient, RN notes reviewed Mode of arrival: ambulatory - History of Present Illness Initial Comments: This is a 43 year old female with a past medical history of cholecystectomy, splenectomy emergency department chief complaint of right lower quadrant abdominal pain and constipation. Patient was seen in the emergency department yesterday. That she is taking in 3 supplements of bisacodyl today with passage of small round bowel movements. States that when she went to wipe she noticed bright red blood on her toilet paper. Patient reports a history of anal fissure. Denies nausea, vomiting, fevers, vaginal bleeding, hemeatochezia, dark or tarry stools, hematemesis. Patient is unsure when her last formed bowel movement was. - Related Data Previous Rx's Medication Instructions Recorded Ondansetron Odt [Zofran Odt] 4 mg PO Q8HR PRN #10 tab 10/29/23 Allergies Allergy/AdvReac Type Severity Reaction Status Date / Time No Known Allergies Allergy Verified 10/30/23 18:00 Review of Systems ROS Statement: Those systems with pertinent positive or pertinent negative responses have been documented in the HPI. ROS Other: All systems not noted in ROS Statement are negative. 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 History of Any Multi-Drug Resistant Organisms: None Reported Past Surgical History: Section, Cholecystectomy, Tonsillectomy Additional Past Surgical History / Comment(s): splenectomy Past Psychological History: Anxiety Smoking Status: Never smoker Past Alcohol Use History: Occasional Past Drug Use History: None Reported General Exam General appearance: alert, in no apparent distress Head exam: Present: atraumatic, normocephalic, normal inspection Eye exam: Present: normal appearance, PERRL, EOMI. Absent: scleral icterus, conjunctival injection, periorbital swelling ENT exam: Present: normal exam, mucous membranes moist Neck exam: Present: normal inspection. Absent: tenderness, meningismus, lymphadenopathy Respiratory exam: Present: normal lung sounds bilaterally. Absent: respiratory distress, wheezes, rales, rhonchi, stridor Cardiovascular Exam: Present: regular rate, normal rhythm, normal heart sounds. Absent: systolic murmur, diastolic murmur, rubs, gallop, clicks GI/Abdominal exam: Present: soft, tenderness (Right side abdomen), normal bowel sounds. Absent: distended, guarding, rebound Extremities exam: Present: normal inspection, full ROM, normal capillary refill. Absent: tenderness, pedal edema, joint swelling, calf tenderness Back exam: Present: normal inspection Neurological exam: Present: alert, oriented X3, CN II-XII intact Psychiatric exam: Present: normal affect, normal mood Skin exam: Present: warm, dry, intact, normal color. Absent: rash Course Vital Signs 10/30/23 10/30/23 17:56 23:48 Temperature 98.6 F Pulse Rate 74 74 Respiratory 18 18 Rate Blood Pressure 128/84 126/74 O2 Sat by Pulse 98 98 Oximetry Medical Decision Making - Medical Decision Making Was pt. sent in by a medical professional or institution (YADY Christensen, INFORMATION TECHNOLOGY PROFESSOR, urgent care, hospital, or [place] [facility] care facility...) When possible be specific @ -No Did you speak to anyone other than the patient for history (EMS, parent, family, police, friend...)? What history was obtained from this source @ -No Did you review nursing and triage notes (agree or disagree)? Why? @ -I reviewed and agree with nursing and triage notes Were old charts reviewed (outside hosp., previous admission, EMS record, old EKG, old radiological studies, urgent care reports/EKG's, [place] [facility] facility records)? Report findings @ -Previous visit to the emergency department reviewed where CT resulted in a incidental finding of a left adrenal mass in addition to the moderate amount of stool within the colon that correlates with constipation. Patient's white blood cell count was elevated. Differential Diagnosis (chest pain, altered mental status, abdominal pain women, abdominal pain men, vaginal bleeding, weakness, fever, dyspnea, syncope, head ache, dizziness, GI bleed, back pain, seizure, CVA, palpatations, mental health, musculoskeletal)? @ -Differential Abdominal Pain Women: Appendicitis, Cholecystitis, diverticulosis, ischemic bowel, pancreatitis, hepatitis, UTI, gastroenteritis, AAA, incarcerated hernia, bowel obstruction, constipation, inflammatory bowel, hepatitis, peptic ulcer disease, splenic infarction, perforated viscus, vulvitis, ovarian torsion, PID, kidney stone, placenta abruption, this is not meant to be an all-inclusive list EKG interpreted by me (3pts min.). @ -None X-rays interpreted by me (1pt min.). @ -None done CT interpreted by me (1pt min.). @ -None done U/S interpreted by me (1pt. min.). @ -None done What testing was considered but not performed or refused? (CT, X-rays, U/S, labs)? Why? @ -None What meds were considered but not given or refused? Why? @ -None Did you discuss the management of the patient with other professionals (professionals i.e. DrCiera, PA, INFORMATION TECHNOLOGY PROFESSOR, lab, RT, psych nurse, medical social worker, cigar tobacco rehandler, teacher, chief supply chain officer, case worker)? Give summary @ -No Was smoking cessation discussed for >3mins.? @ -No Was critical care preformed (if so, how long)? @ -No Were there social determinants of health that impacted care today? How? (Homelessness, low income, unemployed, alcoholism, drug addiction, transportation, low edu. Level, literacy, decrease access to med. care, longterm, rehab)? @ -No Was there de-escalation of care discussed even if they declined (Discuss DNR or withdrawal of care, Hospice)? DNR status @ -No What co-morbidities impacted this encounter? (DM, HTN, Smoking, COPD, CAD, Cancer, CVA, ARF, Chemo, Hep., AIDS, mental health diagnosis, sleep apnea, morbid obesity)? @ -None Was patient admitted / discharged? Hospital course, mention meds given and route, prescriptions, significant lab abnormalities, going to OR and other pertinent info. @ -Discharge. 43-year-old female chief complaint of abdominal pain, constipation, and rectal bleeding. On examination patient noted to have abdominal pain most notable over the right mid and lower quadrant of the abdomen. Abdomen is soft with no signs of rigidity. She had discussion with the patient at bedside with will defer CT at this time due to imaging completed yesterday. Patient is agree with this plan. Laboratory tests ordered for ruling out acute abdominal pain in addition to ordering medications to aid in constipation relief. Interpreation of CBC reveals a mildly elevated white blood cell count of 14.9 and platelets of 469. CMP unremarkable for signs of electrolyte abnormalities, kidney or liver dysfunction. A likely limits. Additionally patient's urine unremarkable for signs of infection. On reevaluation patient has not had a bowel movement after oral milk of magnesia. Fleet enema ordered with lesion lysis. On reevaluation patient states that she had a large bowel movement. Abdominal reevaluation reveals no evidence for right-sided abdominal tenderness. Further imaging will be deferred at this time. Recommend that patient continue to use at home medications to aid in constipation relief. She is in agreement this plan. All questions answered at bedside. Strict return parameters discussed with the patient. Stable for discharge. Case discussed with Dr. Benitez Undiagnosed new problem with uncertain prognosis? @ -No Drug Therapy requiring intensive monitoring for toxicity (Heparin, Nitro, Insulin, Cardizem)? @ -No Were any procedures done? @ -No Diagnosis/symptom? @ -constipation Acute, or Chronic, or Acute on Chronic? @ -Acute Uncomplicated (without systemic symptoms) or Complicated (systemic symptoms)? @ -uncomplicated Side effects of treatment? @ -No Exacerbation, Progression, or Severe Exacerbation? @ -No Poses a threat to life or bodily function? How? (Chest pain, [place], [place], pneumonia, PE, COPD, DKA, ARF, appy, cholecystitis, CVA, Diverticulitis, Homicidal, Suicidal, threat to staff... and all critical care pts) @ -No - Lab Data Result diagrams: 10/30/23 19:46 10/30/23 19:46 Lab Results 10/30/23 10/30/23 10/30/23 Range/Units 19:46 19:46 20:44 WBC 14.9 H (3.8-10.6) k/uL RBC 5.00 (3.80-5.40) m/uL Hgb 14.0 (11.4-16.0) gm/dL Hct 43.7 (34.0-46.0) % MCV 87.5 (80.0-100.0) fL MCH 28.1 (25.0-35.0) pg MCHC 32.1 (31.0-37.0) g/dL RDW 14.5 (11.5-15.5) % Plt Count 469 H (150-450) k/uL MPV 7.6 Neutrophils % 48 % Lymphocytes % 39 % Monocytes % 7 % Eosinophils % 3 % Basophils % 1 % Neutrophils # 7.1 (1.3-7.7) k/uL Lymphocytes # 5.8 H (1.0-4.8) k/uL Monocytes # 1.1 H (0-1.0) k/uL Eosinophils # 0.5 (0-0.7) k/uL Basophils # 0.2 (0-0.2) k/uL Manual Slide Review Performed Poikilocytosis (manual Present Sodium 139 (137-145) mmol/L Potassium 4.3 (3.5-5.1) mmol/L Chloride 108 H (98-107) mmol/L Carbon Dioxide 22 (22-30) mmol/L Anion Gap 9 mmol/L BUN 10 (7-17) mg/dL Creatinine 0.58 (0.52-1.04) mg/dL Est GFR (CKD-EPI)AfAm >90 (>60 ml/min/1.73 sqM) Est GFR (CKD-EPI)NonAf >90 (>60 ml/min/1.73 sqM) Glucose 85 (74-99) mg/dL Calcium 9.2 (8.4-10.2) mg/dL Total Bilirubin 0.2 (0.2-1.3) mg/dL AST 21 (14-36) U/L ALT 16 (4-34) U/L Alkaline Phosphatase 89 (38-126) U/L Total Protein 6.8 (6.3-8.2) g/dL Albumin 3.9 (3.5-5.0) g/dL Amylase 44 (30-110) U/L Lipase 68 (23-300) U/L Urine Color Colorless Urine Appearance Cloudy H (Clear) Urine pH 7.0 (5.0-8.0) Ur Specific Brinson 1.015 (1.001-1.035) Urine Protein Negative (Negative) Urine Glucose (UA) Negative (Negative) Urine Ketones Negative (Negative) Urine Blood Negative (Negative) Urine Nitrite Negative (Negative) Urine Bilirubin Negative (Negative) Urine Urobilinogen <2.0 (<2.0) mg/dL Ur Leukocyte Esterase Negative (Negative) Urine RBC <1 (0-5) /hpf Urine WBC <1 (0-5) /hpf Ur Squamous Epith Cells 1 (0-4) /hpf Amorphous Sediment Occasional H (None) /hpf Urine Bacteria Rare H (None) /hpf Urine Mucus Rare H (None) /hpf Disposition Clinical Impression: Constipation Narrative: Please return to the Emergency Department if symptoms worsen or any other concerns. Continue with your follow-up appointment as scheduled on Wednesday with your primary care provider for further evaluation. Increase oral fluid intake drinking up to 1.5 L/day, increase fiber using Metamucil 1-2 teaspoons 3 times per day. Generally, medications such as milk of magnesia, magnesium citrate, senna, mineral oil can be used to aid in constipation relief. Disposition: HOME SELF-CARE Condition: Good Instructions (If sedation given, give patient instructions): Constipation (ED) Is patient prescribed a controlled substance at d/c from ED?: No Referrals: Noe Wood DO [Primary Care Provider] - 1-2 days Time of Disposition: 23:03
[2023-10-30 18:38] VITALS: PULSE 74; RESP 18; TEMP 98.6
[2023-10-30 20:03] LABS: Basophils # (A) 0.2 k/uL (0-0.2); Basophils % (A) 1 %; Eosinophils # (A) 0.5 k/uL (0-0.7); Eosinophils % (A) 3 %; HCT 43.7 % (34.0-46.0); Lymphocytes # (A) 5.8 k/uL (1.0-4.8); Lymphocytes % (A) 39 %; MCH 28.1 pg (25.0-35.0); MCHC 32.1 g/dL (31.0-37.0); MCV 87.5 fL (80.0-100.0); Mean Platelet Volume 7.6; Monocytes # (A) 1.1 k/uL (0-1.0); Monocytes % (A) 7 %; Neutrophils # (A) 7.1 k/uL (1.3-7.7); Neutrophils % (A) 48 %; Platelet Count 469 k/uL (150-450); RDW 14.5 % (11.5-15.5); WBC 14.9 k/uL (3.8-10.6)
[2023-10-30 20:15] LABS: ALT 16 U/L (4-34); AST 21 U/L (14-36); African American GFR (CKD) >90 (>60 ml/min/1.73 sqM); Albumin 3.9 g/dL (3.5-5.0); Alkaline Phosphatase 89 U/L (38-126); Amylase 44 U/L (30-110); Anion Gap 9 mmol/L; Blood Urea Nitrogen 10 mg/dL (7-17); Calcium 9.2 mg/dL (8.4-10.2); Carbon Dioxide 22 mmol/L (22-30); Chloride 108 mmol/L (98-107); Glucose 85 mg/dL (74-99); Lipase 68 U/L (23-300); Non-African American GFR(CKD) >90 (>60 ml/min/1.73 sqM); Potassium 4.3 mmol/L (3.5-5.1); Sodium 139 mmol/L (137-145); Total Bilirubin 0.2 mg/dL (0.2-1.3); Total Protein 6.8 g/dL (6.3-8.2)
[2023-10-30] MEDS: MAGNESIUM HYDROXIDE 2,400 MG/30 ML CUP PO PRN (20:39)
[2023-10-30 21:32] LABS: Amorphous Sediment,Urine Occasional /hpf; Appearance,Urine Cloudy (Clear); Bacteria,Urine Rare /hpf; Bilirubin,Urine Negative (Negative); Blood,Urine Negative (Negative); Color,Urine Colorless; Glucose,Urine (UA) Negative (Negative); Ketones,Urine Negative (Negative); Leukocyte Esterase,Urine Negative (Negative); Mucus,Urine Rare /hpf; Nitrite,Urine Negative (Negative); Protein,Urine Negative (Negative); RBC,Urine <1 /hpf (0-5); Specific Gravity,Urine 1.015 (1.001-1.035); Squamous Epithelial Cell,Urine 1 /hpf (0-4); Urobilinogen,Urine <2.0 mg/dL (<2.0); WBC,Urine <1 /hpf (0-5)
[2023-10-30 23:06] LABS: Poikilocytosis (M) Present
[2023-10-30 23:59] VITALS: BP 126/74
== END 2023-10-30 23:49 | disposition home or self-care (01) ==
LOC: EC 17:49
DX: K59.00 Constipation, unspecified (principal); Z90.49 Acquired absence of other specified parts of digestive tract
CPT/HCPCS: 36415; 80053; 81001; 82150; 83690; 85025; 99284